=== PATIENT | male | born 1985 | race Two or more races ===

== ENCOUNTER 2017-08-29 22:07 | Emergency (ER) | payer SELFPAY ==
[~2017-08-29] VITALS: Ht 167.6 cm; Wt 63.5 kg
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
[2017-08-29] MEDS ORDERED: DIPHTH,PERTUSS(ACELL),TET TOX 0.5 ML DISP.SYRIN. VAX IM ONE (22:45)
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
[2017-08-30] MEDS ORDERED: NAPR500T PO (00:37)
[2017-08-30 00:40] VITALS: BP 147/72
== END 2017-08-30 00:50 | disposition home or self-care (01) ==
LOC: ER 22:07
DX: S02.2XXA Fracture of nasal bones, initial encounter for closed fracture (principal); S16.1XXA Strain of muscle, fascia and tendon at neck level, initial encounter; S70.10XA Contusion of unspecified thigh, initial encounter; V49.49XA Driver injured in collision with other motor vehicles in traffic accident, initial encounter; Y93.89 Activity, other specified; Y99.8 Other external cause status; Y92.488 Other paved roadways as the place of occurrence of the external cause
CPT/HCPCS: 70450; 70486; 72125; 90471; 90715; 99284-25

== ENCOUNTER 2017-11-16 08:07 | Emergency (ER) | payer SELFPAY | END 2017-11-16 09:15 | disposition home or self-care (01) | LOC: ER 08:07 | DX: J32.1 Chronic frontal sinusitis (principal); J32.0 Chronic maxillary sinusitis | CPT/HCPCS: 99281; 99283 ==